=== PATIENT | male | born 1955 | race Caucasian/White ===

== ENCOUNTER 2016-10-05 19:18 | Emergency (ER) | payer SELFPAY ==
[~2016-10-05] VITALS: Ht 172.7 cm; Wt 79.5 kg
[2016-10-05 19:54] VITALS: Ht 172.7 cm; Wt 79.5 kg
== END 2016-10-05 22:36 | disposition left against medical advice (07) ==
LOC: E/R 19:18
DX: Z53.21 Procedure and treatment not carried out due to patient leaving prior to being seen by health care provider (principal)

== ENCOUNTER 2017-04-01 09:41 | Inpatient (IN) | END 2017-04-06 13:06 | disposition home health service (06) | DRG 229 ==